=== PATIENT | female | born 1980 | race Caucasian/White ===

== ENCOUNTER 2021-05-09 20:38 | Emergency (ER) | payer OTHER ==
[~2021-05-09] VITALS: Ht 162.6 cm; Wt 61.2 kg
[2021-05-09 20:40] VITALS: BP 123/86
--- NOTE | 2021-05-09 20:43 | NUR ---
TO LOBBY A/W BED AMBULATORY
--- NOTE | 2021-05-09 21:15 | NUR ---
TO ER BED 6
--- NOTE | 2021-05-09 21:18 | NUR ---
PT BIB SELF FOR C/O LOWER BACK PAIN AND R AND L LQ PAIN X 3 DAYS. PT REPORTS URINARY BURNING AND FREQUENCY. PAIN IS 7/10, UNRELIEVED BY TYLENOL AT HOME. DENIES VAGINAL OR URINARY BLEEDING. DENIES N/V/D, FEVER, CHILLS, CP OR SOB. LMP 04/23. MED HX: DENIES ALLERGIES: NKA
[2021-05-09] MEDS ORDERED: KETOROLAC 30 MG/ML VIAL IM ONE (22:40)
--- NOTE | 2021-05-09 23:23 | NUR ---
Patient appears to be resting comfortably in bed. Vital Signs within normal limits. Respirations even and unlabored.
[2021-05-09 23:26] LABS: APPEARANCE,URINE CLEAR (CLEAR); BILIRUBIN,URINE NEGATIVE (NEGATIVE); BLOOD, URINE NEGATIVE (NEGATIVE); COLOR,URINE YELLOW (YELLOW); LEUKOCYTE ESTERASE ,URINE NEGATIVE (NEGATIVE); NITRITE, URINE NEGATIVE (NEGATIVE); PH,URINE 6.5 (5.0-9.0); UGLUCOSE NEGATIVE (NEGATIVE)
--- NOTE | 2021-05-09 23:30 | NUR ---
ERMD AT BEDSIDE DISCUSSING RESULTS.
[2021-05-09] MEDS ORDERED: KETO10TA2 PO (23:33)
[2021-05-09] MEDS ORDERED: CEPH500C16 PO (23:33)
[2021-05-09 23:39] VITALS: BP 115/70
--- NOTE | 2021-05-09 23:39 | NUR ---
Patient discharged with v/s stable. Written and verbal after care instructions given and explained. Patient alert, oriented and verbalized understanding of instructions. Ambulatory with steady gait. All questions addressed prior to discharge. ID band removed. Patient advised to follow up with PMD. Rx of KEFLEX AND KETOROLAC given. Patient educated on indication of medication including possible reaction and side effects. Opportunity to ask questions provided and answered.
== END 2021-05-09 23:39 | disposition home or self-care (01) ==
LOC: MED 20:38
DX: M54.5 Low back pain (principal)
CPT/HCPCS: 81003; 81025; 87086; 96372; 99283; J1885

== ENCOUNTER 2021-08-03 13:38 | Emergency (ER) | payer OTHER ==
[~2021-08-03] VITALS: Ht 162.6 cm; Wt 61.2 kg
[~2021-08-03 13:38] MED LIST: CEPH500C16 PO; KETO10TA2 PO
[2021-08-03 13:48] VITALS: BP 115/71
[2021-08-03 14:48] LABS: BASOPHILS % (AUTO) 0.4 % (0.0-2.0); EOSINOPHILS % (AUTO) 0.1 % (0.0-4.0); HEMATOCRIT 34.5 % (36-48); HEMOGLOBIN 11.6 g/dL (12.0-16.0); LYMPHOCYTES # (AUTO) 2.8 K/uL (2.5-16.5); MEAN CORPUSCULAR HEMOGLOBIN 27 pg (27-31); MEAN CORPUSCULAR HGB CONC 34 g/dL (33-37); MEAN CORPUSCULAR VOLUME 81.3 fL (80-94); MONOCYTES # (AUTO) 0.4 K/uL (0.8-1.0); MONOCYTES % (AUTO) 5.2 % (1.7-9.3); NEUTROPHILS # (AUTO) 4.4 K/uL (1.8-7.7); NEUTROPHILS % (AUTO) 57.3 % (42.2-75.2); PLATELET COUNT (AUTO) 278 K/uL (140-450); RED BLOOD CELL COUNT(AUTO) 4.24 MIL/uL (4.20-5.40); RED CELL DISTRIBUTION WIDTH 13.5 % (11.6-13.7); WHITE BLOOD COUNT (AUTO) 7.7 K/uL (4.8-10.8)
[2021-08-03 15:03] LABS: ALBUMIN 3.5 g/dL (3.4-5.0); ANION GAP 12.3 (8-16); CARBON DIOXIDE 27.4 mmol/L (21-32); CREATININE 0.6 mg/dL (0.6-1.3); POTASSIUM 3.7 mmol/L (3.5-5.1); TOTAL BILIRUBIN 0.1 mg/dL (0.0-1.0)
[2021-08-03 19:16] VITALS: BP 115/79
== END 2021-08-03 19:16 | disposition home or self-care (01) ==
LOC: MED 13:38
DX: R07.2 Precordial pain (principal); R10.30 Lower abdominal pain, unspecified; E03.9 Hypothyroidism, unspecified; I10 Essential (primary) hypertension; E78.5 Hyperlipidemia, unspecified; Z98.890 Other specified postprocedural states
CPT/HCPCS: 36415; 71045; 80053; 81002; 81025; 83690; 84484; 85025; 93005; 99285; Q0092

== ENCOUNTER 2022-06-06 14:40 | Emergency (ER) | payer OTHER ==
[~2022-06-06] VITALS: Ht 165.1 cm; Wt 68.9 kg
[2022-06-06 14:45] VITALS: BP 127/63
--- NOTE | 2022-06-06 16:00 | NUR ---
42/F PRESENTS TO ED WITH C/O DYSURIA X1 WEEK, DENIES HEMATURIA, FEVERS, CHILLS. DENIES TAKING MEDICATION FOR PAIN, PATIENT STATES URGENCY TO URINATE BUT WITH LITTLE OUTPUT, REPORTS HX OF UTI AND STATES THIS FEELS SIMILAR, DENIES BLEEDING OR DISCHARGE.
[2022-06-06] MEDS ORDERED: CEPH-588 PO (17:04)
[2022-06-06] MEDS ORDERED: IBUP-2213 PO (17:04)
[2022-06-06] MEDS ORDERED: PYR100 PO (17:04)
[2022-06-06 17:18] VITALS: BP 113/79
--- NOTE | 2022-06-06 17:19 | NUR ---
Patient discharged with v/s stable. Written and verbal after care instructions given and explained. Patient alert, oriented and verbalized understanding of instructions. Ambulatory with steady gait. All questions addressed prior to discharge. ID band removed. Patient advised to follow up with PMD. Rx of cephalexin, ibuprofen, pyridium (sent) given. Patient educated on indication of medication including possible reaction and side effects. Opportunity to ask questions provided and answered.
== END 2022-06-06 17:19 | disposition home or self-care (01) ==
LOC: MED 14:40
DX: N39.0 Urinary tract infection, site not specified (principal); E03.9 Hypothyroidism, unspecified
CPT/HCPCS: 81002; 81025; 87086; 99283

== ENCOUNTER 2022-07-06 18:37 | Emergency (ER) | payer OTHER ==
[~2022-07-06] VITALS: Ht 157.5 cm; Wt 65.8 kg
[~2022-07-06 18:37] MED LIST changes: +CEPH-588 PO; +IBUP-2213 PO; +PYR100 PO
[2022-07-06 18:43] VITALS: BP 121/79
--- NOTE | 2022-07-06 19:15 | NUR ---
Dr. Stevens examining patient.
[2022-07-06] MEDS ORDERED: HYD1C TP (19:23)
[2022-07-06] MEDS ORDERED: FLUC150T PO (19:23)
[2022-07-06] MEDS ORDERED: IBUP-2213 PO (19:23)
[2022-07-06] MEDS ORDERED: CIPR500T4 PO (19:23)
[2022-07-06 19:52] VITALS: BP 121/79
--- NOTE | 2022-07-06 19:52 | NUR ---
Patient discharged with v/s stable. Written and verbal after care instructions given and explained. Patient alert, oriented and verbalized understanding of instructions. Ambulatory with steady gait. All questions addressed prior to discharge. ID band removed. Patient advised to follow up with PMD. Rx of Ciprofloxacin, Fluconazole, Hydrocortisone and Ibuprofen given. Patient educated on indication of medication including possible reaction and side effects. Opportunity to ask questions provided and answered.
== END 2022-07-06 19:52 | disposition home or self-care (01) ==
LOC: MED 18:37
DX: N39.0 Urinary tract infection, site not specified (principal); E03.9 Hypothyroidism, unspecified
CPT/HCPCS: 81002; 81025; 99283

== ENCOUNTER 2022-07-09 19:01 | Emergency (ER) | payer OTHER ==
[~2022-07-09] VITALS: Ht 162.6 cm; Wt 69.0 kg
[~2022-07-09 19:01] MED LIST changes: +CIPR500T4 PO; +FLUC150T PO; +HYD1C TP
[2022-07-09 19:33] VITALS: BP 132/91
--- NOTE | 2022-07-09 19:36 | NUR ---
URINE COLLECTED, PT TO LOBBY.
--- NOTE | 2022-07-09 20:10 | NUR ---
PT ASSESSED BY ERMD IN [facility]
--- NOTE | 2022-07-09 20:21 | NUR ---
Patient discharged with v/s stable. Written and verbal after care instructions given and explained. Patient verbalized understanding. Ambulatory with steady gait. All questions addressed prior to discharge. Advised to follow up with PMD.
== END 2022-07-09 20:21 | disposition home or self-care (01) ==
LOC: MED 19:01
DX: R30.0 Dysuria (principal); E03.9 Hypothyroidism, unspecified; Z98.890 Other specified postprocedural states
CPT/HCPCS: 81002; 81025; 87086; 99283

== ENCOUNTER 2022-11-19 19:03 | Emergency (ER) | payer OTHER ==
[~2022-11-19] VITALS: Ht 162.6 cm; Wt 61.2 kg
[2022-11-19 19:44] VITALS: BP 118/79
--- NOTE | 2022-11-19 19:53 | NUR ---
TO BED 3 FOLLOWING TRIAGE
--- NOTE | 2022-11-19 20:08 | NUR ---
BIB self with c/o of lower abd pain 10/10 radiating to back. denies any allergies. hx hyperlipidemia
[2022-11-19 20:31] LABS: APPEARANCE,URINE CLEAR (CLEAR); BILIRUBIN,URINE NEGATIVE (NEGATIVE); BLOOD, URINE NEGATIVE (NEGATIVE); COLOR,URINE YELLOW (YELLOW); LEUKOCYTE ESTERASE ,URINE NEGATIVE (NEGATIVE); NITRITE, URINE NEGATIVE (NEGATIVE); PH,URINE 6.5 (5.0-9.0); UGLUCOSE NEGATIVE (NEGATIVE)
[2022-11-19 20:54] LABS: BASOPHILS % (AUTO) 0.5 % (0.0-2.0); EOSINOPHILS % (AUTO) 0.1 % (0.0-4.0); HEMATOCRIT 34.9 % (36-48); HEMOGLOBIN 11.5 g/dL (12.0-16.0); LYMPHOCYTES # (AUTO) 3.4 K/uL (2.5-16.5); LYMPHOCYTES % (AUTO) 44.5 % (20.5-51.1); MEAN CORPUSCULAR HEMOGLOBIN 26 pg (27-31); MEAN CORPUSCULAR HGB CONC 33 g/dL (33-37); MEAN CORPUSCULAR VOLUME 79.6 fL (80-94); MONOCYTES # (AUTO) 0.4 K/uL (0.8-1.0); MONOCYTES % (AUTO) 4.9 % (1.7-9.3); NEUTROPHILS # (AUTO) 3.9 K/uL (1.8-7.7); PLATELET COUNT (AUTO) 277 K/uL (140-450); RED BLOOD CELL COUNT(AUTO) 4.38 MIL/uL (4.20-5.40); RED CELL DISTRIBUTION WIDTH 13.8 % (11.6-13.7); WHITE BLOOD COUNT (AUTO) 7.7 K/uL (4.8-10.8)
[2022-11-19 21:14] LABS: ANION GAP 9.4 (8-16); CARBON DIOXIDE 28.4 mmol/L (21-32); CREATININE 0.6 mg/dL (0.6-1.3); POTASSIUM 3.8 mmol/L (3.5-5.1); TOTAL BILIRUBIN 0.2 mg/dL (0.0-1.0)
[2022-11-19] MEDS: KETOROLAC 30 MG/ML VIAL IM ONE (22:02)
[2022-11-19 23:00] VITALS: BP 117/70
== END 2022-11-19 22:00 | disposition home or self-care (01) ==
LOC: MED 19:03
DX: R10.30 Lower abdominal pain, unspecified (principal); E03.9 Hypothyroidism, unspecified; Z79.899 Other long term (current) drug therapy
CPT/HCPCS: 36415; 74176; 80053; 81003; 81025; 83690; 85025; 96372; 99284; J1885

== ENCOUNTER 2022-12-01 06:48 | Day surgery (SDC) | payer OTHER ==
[~2022-12-01] VITALS: Ht 162.6 cm; Wt 59.0 kg
[2022-12-01] MEDS ORDERED: fentaNYL citrate 0.05 MG/ML VIAL ONE (08:16)
[2022-12-01] MEDS ORDERED: LIDOCAINE 2% 100 MG/5 ML UJET TP ONE (08:16)
[2022-12-01] MEDS ORDERED: fentaNYL citrate 0.05 MG/ML VIAL IVP ONE (13:30)
== END 2022-12-01 09:37 | disposition home or self-care (01) ==
LOC: MMU 06:48 → MDS 06:48
PROVIDERS: ATTEND Internal Medicine Gastroenterology
DX: R19.5 Other fecal abnormalities (principal); E78.2 Mixed hyperlipidemia; Z20.822 Contact with and (suspected) exposure to COVID-19; Z79.899 Other long term (current) drug therapy
CPT/HCPCS: 45378; 87426; J3010